=== PATIENT | female | born 1990 | race Caucasian/White ===

== ENCOUNTER 2023-05-19 17:04 | Emergency (ER) | payer BC, SELFPAY ==
[2023-05-19 17:07] VITALS: BP 139/93
--- NOTE | 2023-05-19 19:15 | ED.GENMED ---
History of Present Illness
General
Chief Complaint: DVT/Possible Blood Clot
Time Seen by Provider: 05/19/23 17:59
Travel History
Have you had any contact with someone who has COVID-19?: No
Do you have any symptoms of coronavirus? Fever > 100 degrees, chills, cough, shortness of breath, sore throat, loss of taste or smell, muscle aches, or headache?: No
History of Present Illness
History of Present Illness:
33-year-old female presents to the emergency department for evaluation of left calf pain. Denies any trauma. She is currently going through IVF and is currently receiving high-dose injections of estrogen. 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
ER for evaluation of a possible DVT. Denies any fevers, chest pain, or shortness of breath
Review of Systems
Review of Systems
Allergies reviewed?: Yes
All Other Systems: ROS reviewed and negative except as documented in HPI and ROS
Phy Exam
Physical Exam
Physical Exam:
GEN: Well appearing, NAD, WDWN
HEENT: Oral mucosa moist, no scleral icterus
Cardiac: Regular rate
Lung: No respiratory distress, no tachypnea
MSK: No gross deformity or injuries, no significant calf edema bilaterally
Skin: Good color, no pallor or jaundice, no rashes
Neuro: AO x3, moves all extremities freely
Psych: Calm, cooperative
Course
Orders/Labs/Results
Orders:
Orders
05/19/23 17:11
US Legs, Left [US Periph Venous LOWER Ext LT] Urgent
Comment:
Reason For Exam: calf pain
Vital Signs
Initial and Last Documented VS:
Initial Vital Signs
Temp Pulse Resp BP Pulse Ox
98.3 F 112 18 139/93 100
05/19/23 17:07 05/19/23 17:07 05/19/23 17:07 05/19/23 17:07 05/19/23 17:07
Last Documented Vital Signs
Temp Pulse Resp BP Pulse Ox
98.3 F 101 16 139/93 98
05/19/23 17:07 05/19/23 20:00 05/19/23 20:00 05/19/23 17:07 05/19/23 20:00
MDM/Problems Addressed
MDM/Problems Addressed:
DVT study is negative, likely musculoskeletal etiology
*Critical Care Note
Total Time (30-74mins, 75-104mins- exclusive of procedures): Not Applicable
ED Attending Note
-
Portions of this chart may have been created with voice recognition software.� Occasional wrong word or��sound alike� substitutions may have occurred due to the inherent limitations of voice recognition software.
Discharge Plan
Departure
Patient Disposition: Home (Routine Discharge)
Date of Disposition: 05/19/23
Time of Disposition: 20:05
Patient with high blood pressure during this ER visit?: No
Discharge Problem:
Pain of left calf
Instructions: Lower Extremity Muscle Strain (DC)
Interventions
Interventions:
*Risk Screen - Suicide Last Done: 05/19/23 19:46
*General Assessment Last Done: 05/19/23 20:21
*Neglect/Abuse Screening Last Done: 05/19/23 19:46
*Nursing Disposition Last Done: 05/19/23 20:21
ED- Cardiac Assessment Last Done: 05/19/23 18:41
ED- Pulmonary Assessment Last Done: 05/19/23 18:41
ED-Peripheral Vascular Assessment Last Done: 05/19/23 18:41
ED-Skin Assessment Last Done: 05/19/23 18:41
Discharge Date and Time
Discharge Date/Time: 05/19/23 20:21
== END 2023-05-19 20:21 | disposition home or self-care (01) ==
LOC: EMR 17:04
PROVIDERS: EMERGENCY PHYSICIAN Emergency Medicine; FAMILY PHYSICIAN Nurse Practitioner Family
DX: M79.662 Pain in left lower leg (principal)
CPT/HCPCS: 99284; 93971

== ENCOUNTER 2024-01-30 00:08 | Observation (INO) | payer BC, SELFPAY ==
[2024-01-29 19:30] VITALS: BP 155/96
[2024-01-29 19:49] LABS: % Basophils 0.8 % (0-2); % Eosinophils 4.9 % (0-6); % Immature Granulocytes 2.4 % (0-0.5); % Lymphocytes 23.2 % (20.5-51.1); % Monocytes 6.8 % (1.7-9.3); % Neutrophils 61.9 % (42.2-75.2); Absolute Basophils 0.1 10^3/uL (0-0.2); Absolute Eosinophils 0.6 10^3/uL (0-0.7); Absolute Immature Granulocytes 0.3 10^3/uL (0-0.05); Absolute Lymphocytes 2.6 10^3/uL (1.2-3.4); Absolute Monocytes 0.8 10^3/uL (0.1-0.6); Absolute Neutrophils 7.1 10^3/uL (1.4-6.5); Hematocrit 33.1 % (37.0-47.0); Hemoglobin 11.5 g/dL (12.0-16.0); Mean Corp Hgb Conc. 34.7 g/dL (33.0-37.0); Mean Corpuscular Hgb 29.8 pg (27.0-31.0); Mean Corpuscular Volume 85.8 fL (81.0-99.0); Mean Platelet Volume 9.2 fL (7.4-10.4); Nucleated Red Blood Cells % 0 %; Platelet Count 368 10^3/uL (130-400); Red Blood Cell Count 3.86 10^6/uL (4.20-5.40); Red Cell Dist. Width 12.7 % (11.5-14.5); White Blood Cell Count 11.4 10^3/uL (4.8-10.8)
[2024-01-29 19:52] LABS: Urine Albumin Negative (Neg - Trace); Urine Bilirubin Negative (Negative); Urine Character Clear (Clear); Urine Color Yellow; Urine Glucose Negative (Negative); Urine Ketone Negative (Negative); Urine Leukocyte Negative (Negative); Urine Nitrite Negative (Negative); Urine Occult Blood 4+ (Negative); Urine Urobilinogen Negative (Neg - 1+)
[2024-01-29 20:00] LABS: Urine Bacteria Few (Negative); Urine White Cell 0-2 /HPF (0-5)
[2024-01-29 20:17] LABS: ALT (SGPT) 50 U/L (0-35); AST (SGOT) 38 U/L (14-36); Albumin 3.8 g/dl (3.5-5.0); Alkaline Phosphatase 108 U/L (38-126); Blood Urea Nitrogen 13 mg/dl (7-17); Calcium 9.4 mg/dl (8.4-10.2); Carbon Dioxide 22 mmol/L (22-30); Chloride 109 mmol/L (98-107); Glucose 95 mg/dl (70-99); Potassium 4.5 mmol/L (3.5-5.1); Sodium 139 mmol/L (135-145); Total Bilirubin 0.6 mg/dl (0.2-1.3); Total Protein 5.9 g/dl (6.3-8.2); eGFR > 60.00
[2024-01-29 21:18] VITALS: BP 163/93
--- NOTE | 2024-01-29 22:08 | ED.GENMED ---
History of Present Illness
General
Chief Complaint: Blood Pressure Problem
Source: patient
Time Seen by Provider: 01/29/24 21:27
Travel History
Have you traveled to any high risk areas for coronavirus over the past 14 days?: No
Have you had any contact with someone who has COVID-19?: No
Do you have any symptoms of coronavirus? Fever > 100 degrees, chills, cough, shortness of breath, sore throat, loss of taste or smell, muscle aches, or headache?: No
History of Present Illness
History of Present Illness:
Dariana Booth, 33-year-old female 7 days post- following at term for a via IVF, is here with elevated blood pressure. She was 'not feeling great' and checked her blood pressure at home, which was elevated. In the emergency,
the elevation has persisted. She has no other symptoms, reports no recent illnesses or changes to her health. She did not have elevated blood pressure through the and has no prior history of hypertension.
Past History
Past History
ED Past Medical History: Hypothyroidism
ED Past Surgical History: Other (wisdom tooth extraction)
Social History
Tobacco: Non-smoker
Alcohol: None
Drug: None
Personal:
Living: with family
Review of Systems
Review of Systems
All Other Systems: ROS reviewed and negative except as documented in HPI and ROS
Constitutional: Reports other ('not good')
Phy Exam
General Physical Exam
General Presentation: well appearing and no apparent distress
General Skin: warm and dry
General Habitus: normal
General Mental: alert
General Hydration: appears well hydrated
ENT Exam
ENT Exam: EOMI, pharynx normal, neck supple and normocephalic
Eye Exam
Eye Exam: PERRL, cornea clear and conjunctiva normal
Cardiovascular Exam
Cardiovascular Exam: regular rate/rhythm, no edema, no murmur and normal peripheral pulses
Pulmonary Exam
Pulmonary Exam: lungs clear, no respiratory distress, no rales, no crackles, no rhonchi, no stridor, no wheezing and no cough
Gastrointestinal Exam
Gastrointestinal Exam: normal bowel sounds, non tender, soft, no organomegaly, no pulsatile mass and non distended
Neurological Exam
Neurological Exam: alert, oriented x3, no motor deficits and speech normal
Musculoskeletal Exam
Musculoskeletal Exam: full ROM and no edema
Skin Exam
Skin Exam: normal color, warm/dry, no rash and no petechia
Psychiatric Exam
Psychiatric Exam: normal mood/affect
Course
Orders/Labs/Results
Orders:
Orders
01/29/24 19:40
Complete Blood Count/With Diff Urgent
Comprehensive Metabolic Panel Urgent
LDH Urgent
Comment: ADDON
Protein/Creat Ratio (Random) Urgent
Date Specimen was Collected: 01/29/24
Time Specimen was Collected: 19:38
Comment: ADDON
Urinalysis Reflex To Culture Urgent
Date Specimen was Collected: 01/29/24
Time Specimen was Collected: 19:38
Urine Microscopic Reflex Cult Urgent
01/29/24 21:40
Add On- LAB Stat
Tests Added?: urine protein; urine creatinine; serum LDH
01/29/24 22:03
ECG [Electrocardiogram (*1)] Stat
Reason for Study: Other
Other Reason for Exam: preeclampsia
EKG- Treatment ONCE
01/29/24 22:15
Labetalol HCl [Trandate] 20 mg IV NOW STA
Abnormal Lab Results
01/29/24
19:40
WBC 11.4 H 10^3/uL
(4.8-10.8)
RBC 3.86 L 10^6/uL
(4.20-5.40)
Hgb 11.5 L g/dL
(12.0-16.0)
Hct 33.1 L %
(37.0-47.0)
Abs Immat Gran (auto) 0.3 H 10^3/uL
(0-0.05)
Absolute Neuts (auto) 7.1 H 10^3/uL
(1.4-6.5)
Absolute Monos (auto) 0.8 H 10^3/uL
(0.1-0.6)
Immature Gran % 2.4 H %
(0-0.5)
Chloride 109 H mmol/L
(98-107)
AST 38 H U/L
(14-36)
ALT 50 H U/L
(0-35)
Lactate Dehydrogenase 316 H U/L
(120-246)
Total Protein 5.9 L g/dl
(6.3-8.2)
Ur Occult Blood Reflex 4+ A
(Negative)
Urine RBC 3-6 A /HPF
(0-2)
Urine Bacteria (Reflex) Few A
(Negative)
01/29/24 19:40
01/29/24 19:40
Vital Signs
Initial and Last Documented VS:
Initial Vital Signs
Temp Pulse Resp BP Pulse Ox
99 F 80 16 155/96 99
01/29/24 19:30 01/29/24 19:30 01/29/24 19:30 01/29/24 19:30 01/29/24 19:30
Last Documented Vital Signs
Temp Pulse Resp BP Pulse Ox
99 F 80 16 163/93 99
01/29/24 19:30 01/29/24 19:30 01/29/24 19:30 01/29/24 21:18 01/29/24 19:30
MDM/Problems Addressed
MDM/Problems Addressed:
Discussed with [employer] De[employer] Supervisor legal receptionist. Recommended IV labetalol 20 mg and admission to L&D. Will admit.
*Critical Care Note
Total Time (30-74mins, 75-104mins- exclusive of procedures): Not Applicable
ED Attending Note
-
Portions of this chart may have been created with voice recognition software.� Occasional wrong word or��sound alike� substitutions may have occurred due to the inherent limitations of voice recognition software.
Discharge Plan
Departure
Patient Disposition: Admit
Date of Disposition: 01/29/24
Time of Disposition: 22:17
Presentation/result/management discussed w/ accepting MD/DO: [employer] De[employer] Supervisor
Patient with high blood pressure during this ER visit?: Yes
Discharge Problem:
Pre-eclampsia
Referrals:
PRIVATE,PHYSICIAN [Family Provider] -
Interventions
Interventions:
*Risk Screen - Suicide Last Done: 01/29/24 19:28
*General Assessment Last Done: 01/29/24 19:30
*Neglect/Abuse Screening Last Done: 01/29/24 19:30
ED- Neurological Assessment Last Done: 01/29/24 21:59
Discharge Date and Time
Print Language: PORTUGUESE
[2024-01-29 22:13] LABS: LDH 316 U/L (120-246)
[2024-01-29 22:14] LABS: Urine Protein 13 mg/dl
[2024-01-29 22:15] LABS: Protein/creatinine Ratio 0.6
[2024-01-29 22:38] VITALS: BP 149/94
[2024-01-29 23:44] LABS: Free T4 1.58 ng/dl (0.78-2.19)
[2024-01-29 23:58] LABS: TSH 1.93 uIU/ml (0.47-4.68)
[2024-01-30 00:10] VITALS: BP 155/84
[2024-01-30 00:17] VITALS: BMI 23.8
[2024-01-30] MEDS: PROCARDIA XL (EXTENDED RELEASE) 30 MG PO (02:08)
[2024-01-30] MEDS: SYNTHROID 112 MCG PO (05:38)
[2024-01-30 06:23] LABS: ALT (SGPT) 46 U/L (0-35); AST (SGOT) 31 U/L (14-36)
== END 2024-01-30 12:00 | disposition home or self-care (01) ==
LOC: LDRP 00:08
PROVIDERS: Student in an Organized Health Care Education/Training Program; ADMITTING PHYSICIAN Obstetrics & Gynecology; EMERGENCY PHYSICIAN Emergency Medicine
DX: O14.05 Mild to moderate pre-eclampsia, complicating the puerperium (principal); O99.285 Endocrine, nutritional and metabolic diseases complicating the puerperium; E03.9 Hypothyroidism, unspecified; R00.1 Bradycardia, unspecified; I45.10 Unspecified right bundle-branch block; Z79.890 Hormone replacement therapy
CPT/HCPCS: 80053; 81003; 81015; 82570; 83615; 84156; 84439; 84443; 84450; 84460; 85025; 93005; 96374; 99284; G0378